=== PATIENT | male | born 1955 | race Caucasian/White ===

== ENCOUNTER → 2020-10-07 08:47 | Outpatient (CLI) | payer MEDICARE, BC ==
[~2020-10-07 08:47] MED LIST: BAYER CHEWABLE81 MG PO; LIPITOR20 MG PO; PLAVIX75 MG PO
--- NOTE | 2020-10-09 09:41 | EC ---
PATIENT:LEVAR AGUIAR DATE OF SERVICE: 10/07/20 SEX: M MEDICAL RECORD: [id number] DATE OF : 53 [facility] AGE OF PATIENT: 65 ADMISSION DATE: 10/07/20 REFERRING PHYSICIAN: INTERPRETING PHYSICIAN: BRENDEN MARCANO MD ECHOCARDIOGRAM REPORT ECHO CHARGES 4 ECHO COMPLETE Date: 10/07/20 CLINICAL DIAGNOSIS: CAD/ASSESS EF ECHOCARDIOGRAPHIC MEASUREMENTS (adult normal given) AC root (d.<3.7cm) 3.8 cm LV Septum d (<1.2 cm> 1.4 cm Valve Excursion 1.8 cm LV Septum (systole) 1.6 cm Left Atria (s.<4.0cm> 3.2 cm LVPW d(<1.2cm) 1.4 cm RV (d.<2.3cm) 3.7 cm LVPW (sytole) 1.6 cm LV diastole(<5.6CM) 3.9 cm MV E-F(>70mm/sec) cm LV systole 2.7 cm LVOT Diameter 2.2 cm MV exc.(>10mm) 1.4 cm Est.ejection fraction (50-75%) % DOPPLER: LVIT cm/sec A 84.0 cm/sec E 78.0 cm/sec LA cm/sec RVSP 26 mmHg LVOT 111 cm/sec AOP1/2T m/s Asc. Ao 148 cm/sec RVOT 60 cm/sec RA cm/sec PA 90 cm/sec AV Gradient Peak 8.74 mmHg AV Mean 4.59 mmHg AV Area 2.8 cm MV Gradient Peak 3.50 mmHg MV Mean 1.16 mmHg MV Area cm COMMENTS: Lumber Puller: 2 MIAH URENA Gun Fertilizer: 3 Dr. Laura TAPE# PACS Pericardial Effusion N DATE OF SERVICE: Adequate 2D, color flow imaging, spectral Doppler, and M-Mode. Mild LVH. LV internal dimensions are normal. Wall motion normal. EF greater than or equal to 55%. Aortic valve is tricuspid. No evidence of stenosis by Doppler interrogation. Left atrium is normal. Mitral valve shows no prolapse. Trace MR. Right-sided chambers are grossly normal. Mild TR. TRANSINT:[id number] Voice Confirmation ID: [id number] DOCUMENT ID: [id number] ECHOCARDIOGRAM REPORT [id number] LEVAR AGUIAR BRENDEN MARCANO MD at 0941 CC: [id number] DICTATION DATE: 10/08/20 1443 HARDNESS INSPECTOR: 10/08/20 192 DEP CLI 10/07/20 [id number] [place] [address]
== END | disposition home or self-care (01) ==
LOC: D.HCCECHO 08:47
PROVIDERS: ATTEND Internal Medicine Interventional Cardiology
DX: I25.10 Atherosclerotic heart disease of native coronary artery without angina pectoris (principal)